=== PATIENT | male | born 1965 | race Caucasian/White ===

== ENCOUNTER → 2016-07-24 | Outpatient (CLI) | payer BC ==
[~2016-07-24] MED LIST: ALLEGRA; AMLODIPINE-BENA1 CA1 PO; BACTRIM DS TABL1 TA1 PO; DIAZEPAM10 MG PO; FLEXERIL10 MG PO; FLONASE16 GM; HCTZ; HYDROCHLOROTHIA25 MG PO; IBUPROFEN800 MG PO; LODINE400 M1 PO; LOTREL; MEDROL DOSEPAK4 MG PO; MEDROL4 MG/DOSE- PO; NORFLEX100 M1 PO; NYQUIL; PERCOCET 5-3251 TAB PO; PERCOCET5/325; PREDNISONE PO; PREDNISONE10 MG PO; ROBAXIN 750750 M1 PO; TEMAZEPAM; TRAMADOL HCL50 M1 PO; ULTRAM PO; VOLTAREN75 MG PO; ZOFRAN ODT4 MG PO
--- NOTE | ~2016-07-24 | US6 ---
[facility] A Service of [facility] & [facility] RADIOLOGY TEXT RESULTS PATIENT: SAIGE DEAN LOCATION: SG : 65 UNIT #: [id number] AGE: [address]: Caio Richardson MD SEX: M ORDER DR: [id number] [address] [address] [id number] O MR#: [id number] Acc #: [id number] NAME: SAIGE DEAN : 1965 SEX: M STUDY DATE/TIME: 07/24/2016 8:07 UNIT: SG ROOM: STUDY DESCRIPTION: US Abdominal Limited Attending Physician: Caio Richardson M.D. Referring Physician: Caio Richardson M.D. Ordering Physician: Caio Richardson M.D. Primary Care Physician: Caio Richardson M.D. MEDICAL IMAGING REPORT This report is preliminary unless electronic signature is present. EXAM Abdominal ultrasound limited INDICATION Elevated LFTs for 1 week. Gallbladder removed 6-7 years ago. No pain. No nausea, vomiting or diarrhea. FINDINGS Real-time ultrasonography of the right upper quadrant performed. No prior right upper quadrant ultrasound for comparison. The pancreas is very poorly visualized due to overlying bowel gas artifact. If there is clinical concern regarding pancreas, CT examination would be recommended. The liver shows a patent portal vein with normal direction of flow. The liver is upper limits of normal in size measuring 17.6 cm in craniocaudal extent. Normal in contour and echotexture. No focal hepatic parenchymal abnormality is seen. The right kidney measures 12.5 cm in greatest length. No hydronephrosis or nephrolithiasis. No cystic or solid mass lesion. No perinephric fluid collection. Status post cholecystectomy. No intra or extrahepatic biliary ductal dilatation. Common duct measures 4.8 mm in diameter. IMPRESSION 1. The liver is normal in appearance. 2. Status post cholecystectomy. No intra or extrahepatic biliary ductal dilatation. 3. Right kidney normal. 4. Pancreas not visualized due to overlying bowel gas artifact. If the pancreas is of acute clinical concern, recommend CT assessment. 5. No abnormal fluid collections are seen. STS. [facility] A Service of [facility] & [facility] RADIOLOGY TEXT RESULTS PATIENT: [facility]IG[facility] DEAN [id number] UNIT #: [id number] AGE: [address]: Caio Richardson MD SEX: M ORDER DR: Dictated by... Oh Salamanca M.D. THIS IS AN ELECTRONICALLY VERIFIED REPORT Oh Salamanca M.D. at 07/25/2016 5:16 PM Afshin TD: 07/24/2016 12:20 JOB #: [id number] MEDICAL IMAGING REPORT Page 1 of 1
== END | disposition home or self-care (01) ==
LOC: SGUS 07:48
DX: R79.89 Other specified abnormal findings of blood chemistry (principal); Z90.49 Acquired absence of other specified parts of digestive tract
CPT/HCPCS: 76705

== ENCOUNTER → 2016-10-05 | Outpatient (CLI) | payer BC ==
--- NOTE | ~2016-10-05 | CT107 ---
[facility] A Service [facility] RADIOLOGY TEXT RESULTS PATIENT: SAIGE DEAN LOCATION: [facility] : 65 UNIT #: [id number] AGE: [address]: Dayo Wong MD SEX: M ORDER DR: [id number] [place] [id number] P MR#: [id number] Acc #: [id number] NAME: SAIGE DEAN : 1965 SEX: M STUDY DATE/TIME: 10/05/2016 12:48 UNIT: [facility] ROOM: STUDY DESCRIPTION: CT Pelvis Wo Cont Attending Physician: Dayo Wong M.D. Referring Physician: Daoy Wong M.D. Ordering Physician: Dayo Wong M.D. Primary Care Physician: Caio Richardson M.D. MEDICAL IMAGING REPORT This report is preliminary unless electronic signature is present. EXAM CT pelvis without contrast. HISTORY Left groin pain since 10/03/2016. TECHNIQUE Axial 5 mm images were obtained through the pelvis without contrast. Sagittal and coronal reconstructions were generated. This CT exam was performed with one or more of the following radiation dose reduction techniques: automatic exposure control, adjustment of mA and/or kV according to patient size, and iterative reconstruction. FINDINGS The bowel appears normal. The bladder and prostate gland are normal and the bones are normal. There is no hernia identified. There is questionable asymmetric thickening of the soft tissues just in front of the left pubic symphysis which could represent some tendinosis. IMPRESSION 1. No definite hernia is identified. 2. Questionable thickening of the soft tissues anterior to the left pubic symphysis. 3. The best tool to diagnosis for hernias and evaluate for pubalgia is with an MRI with a dedicated sports hernia protocol. I have discussed the findings with Dr. Wong. Dictated by... [facility] A Service [facility] RADIOLOGY TEXT RESULTS PATIENT: SAIGE DEAN LOCATION: [facility] : 65 UNIT #: [id number] AGE: [address]: Dayo Wong MD SEX: M ORDER DR: German Heart M.D. THIS IS AN ELECTRONICALLY VERIFIED REPORT German Heart M.D. at 10/06/2016 8:03 AM LEONIE/ulises TD: 10/05/2016 17:11 JOB #: [id number] MEDICAL IMAGING REPORT Page 1 of 1
== END | disposition home or self-care (01) ==
LOC: SCT 07:31
DX: R10.30 Lower abdominal pain, unspecified (principal)
CPT/HCPCS: 72192

== ENCOUNTER → 2016-10-18 | Outpatient (CLI) | payer BC ==
--- NOTE | ~2016-10-18 | MR151 ---
[facility]. [facility] A Service of [facility] & [facility] RADIOLOGY TEXT RESULTS PATIENT: SAIGE DEAN LOCATION: [facility] : 65 UNIT #: [id number] AGE: [address]: Dayo Wong MD SEX: M ORDER DR: [id number] [address] [address] [id number] O MR#: [id number] Acc #: [id number] NAME: SAIGE DEAN : 1965 SEX: M STUDY DATE/TIME: 10/18/2016 18:01 UNIT: [facility] ROOM: STUDY DESCRIPTION: MR Pelvis WWo Contrast Attending Physician: Dayo Wong M.D. Ordering Physician: Dayo Wong M.D. Primary Care Physician: Bud Bañuelos M.D. MRI CENTER REPORT This report is preliminary unless electronic signature is present. EXAM MRI of the pelvis with and without contrast HISTORY 51-year-old male complains of left-sided groin pain since June. May have injured groin while exercising. COMPARISON CT pelvis 10/05/2016, left hip films 10/04/2016. FINDINGS Multiplanar, multiecho imaging was performed of the hips and pelvis utilizing a high field magnet and dedicated protocol. Bone structure and alignment appears normal. No focal marrow edema. Physiologic amount of joint fluid. Along the left anterior hip, there is fluid surrounding the distal aspect of the iliopsoas tendon extending anterior to the hip joint. This measures over 4 cm in length. This may represent an iliopsoas bursitis or possible ganglion cyst. No evidence of tendinopathy or tear. Normal tendinous attachments about the hips and pelvis. There is a trace amount of increased T2 and STIR signal within the left symphysial body. This is nonspecific. Trace amount of edema is also noted within the proximal portion of the left adductor longus muscle and tendon insertion. The rectus abdominis musculature appears normal. Visualized SI joints appear normal. Internal pelvic structures unremarkable. IMPRESSION 1. Focal fluid collection along the anterior aspect of the left hip along the distal aspect of the iliopsoas muscle and tendon. This may represent focal bursitis or potentially a ganglion cyst. No evidence of underlying tendinopathy or tear. 2. Very subtle changes in the left symphysial body and within the proximal adductor musculature could represent a low grade injury of the adductor longus rectus abdominis complex. Clearly no evidence of STS. [facility] A Service of [facility] RADIOLOGY TEXT RESULTS PATIENT: SAIGE DEAN LOCATION: [facility] : 65 UNIT #: [id number] AGE: [address]: Dayo Wong MD SEX: M ORDER DR: high-grade injury or significant stress reaction within the symphysis. Dictated by... Farhat Crawford M.D. THIS IS AN ELECTRONICALLY VERIFIED REPORT Farhat Crawford M.D. at 10/20/2016 8:00 AM TASNEEM/maximino TD: 10/19/2016 14:07 JOB #: [id number] MRI CENTER REPORT Page 1 of 1
== END | disposition home or self-care (01) ==
LOC: SMRI 16:56
DX: R10.30 Lower abdominal pain, unspecified (principal)
CPT/HCPCS: 72197; A9581